=== PATIENT | male | born 1940 | race Two or more races ===

== ENCOUNTER 2017-07-31 13:39 | Emergency (ER) | payer MEDICAID, MEDICARE ==
[2017-07-31 13:51] VITALS: BP 138/73
--- NOTE | 2017-07-31 15:15 | EDM.PDOC ---
ED HPI GENERAL MEDICAL PROBLEM - General Chief Complaint: Respiratory Problem Stated Complaint: SOB Time Seen by Provider: 07/31/17 14:04 Source of Information: Reports: Patient History Limitations: Reports: No Limitations - History of Present Illness INITIAL COMMENTS - FREE TEXT/NARRATIVE: 77-year-old male presents with his family for evaluation and treatment of cough and shortness of breath. Patient primarily speaks French. His daughter is here translating. Reports that symptoms started on Thursday. Currently is complaining of productive cough, fullness to the ears, chills and shortness of breath. He also reports some chest discomfort associated with coughing. Denies any current chest discomfort. Denies any fevers, nausea, vomiting, diarrhea or abdominal pain. Patient traveled to [place] from [place] recently. He is scheduled to go home on Thursday. Patient did have an influenza vaccine this season. Duration: Day(s): (3) Chest Pain Score (Numeric/FACES): 4 Throat Pain Score (Numeric/FACES): 4 - Related Data Allergies Allergy/AdvReac Type Severity Reaction Status Date / Time No Known Allergies Allergy Verified 07/31/17 13:51 Home Meds: Home Meds glipiZIDE [Glipizide Xl] 10 mg PO DAILY 07/24/15 [History] metFORMIN HCl [Metformin HCl] 1,000 mg PO BID 07/24/15 [History] Oseltamivir [Tamiflu] 75 mg PO BID #10 cap 07/31/17 [Rx] Past Medical History Respiratory History: Reports: Asthma Endocrine/Metabolic History: Reports: Diabetes, Type II - Past Surgical History GI Surgical History: Reports: Appendectomy Social & Family History - Family History Family Medical History: Noncontributory - Tobacco Use Smoking Status *Q: Never Smoker - Caffeine Use Caffeine Use: Reports: Coffee - Recreational Drug Use Recreational Drug Use: No ED ROS GENERAL - Review of Systems Review Of Systems: See Below Constitutional: Reports: Chills, Malaise. Denies: Fever HEENT: Denies: Ear Pain (reports fullness to hte ears) Respiratory: Reports: Shortness of Breath, Cough, Sputum Cardiovascular: Reports: Chest Pain (reports discomfort associated with coughing ) GI/Abdominal: Denies: Abdominal Pain, Nausea, Vomiting ED EXAM, GENERAL - Physical Exam Exam: See Below Exam Limited By: No Limitations General Appearance: Alert, WD/WN, No Apparent Distress, Thin Ears: Normal External Exam Ear Exam: Left Ear: Erythema, Bilateral Ear: Other (fluid present behindthe bilateral TMs ) Nose: Normal Inspection Throat/Mouth: Normal Inspection, Normal Lips, Normal Voice, No Airway Compromise Respiratory/Chest: No Respiratory Distress, No Accessory Muscle Use, Rhonchi ( right lung base) Cardiovascular: Normal Peripheral Pulses, Regular Rate, Rhythm, No Murmur GI/Abdominal: Soft, Non-Tender Neurological: Alert, Normal Cognition Psychiatric: Normal Affect, Normal Mood Skin Exam: Warm, Dry, Normal Color Course - Vital Signs Last Recorded V/S: Last Vital Signs Temp 37.1 C 07/31/17 13:48 Pulse 64 07/31/17 13:48 Resp 19 07/31/17 13:48 BP 138/73 07/31/17 13:48 Pulse Ox 97 07/31/17 13:48 Orthostatic Blood Pressure [] 142/64 Orthostatic Blood Pressure [] 123/80 - Orders/Labs/Meds Orders: Active Orders 24 hr Category Date Time Status Orthostatic Vital Signs [RC] ASDIRECTED Care 07/31/17 14:25 Active - Radiology Interpretation Free Text/Narrative:: Chest: Two views of the chest were obtained. Comparison: Prior chest x-ray of 07/24/15. Heart size appears at the upper limits of normal. Tortuous thoracic aorta is is seen. Lungs are clear without acute parenchymal change. Mild degenerative change is noted within the spine. Impression: 1. Incidental findings. Nothing acute is seen. - Re-Assessments/Exams Free Text/Narrative Re-Assessment/Exam: 07/31/17 15:25 Influenza returned positive for type a. I reviewed the chest x-ray and labs with patient and his family. We will start him on Tamiflu. Offered prophylactic Tamiflu to the family but they decided against. they have an [id number] at home. I encouraged them to have her checked either here or the clinic as they report she has been experiencing cough and runny nose. Discharge instructions as documented. Departure - Departure Time of Disposition: 15:25 Disposition: Home, Self-Care 01 Condition: Fair Clinical Impression: Influenza A - Discharge Information Prescriptions: Oseltamivir [Tamiflu] 75 mg PO BID #10 cap Instructions: Influenza, Adult, [id number] Referrals: PCP,Not In Area [Primary Care Provider] - Forms: ED Department Discharge Additional Instructions: Take the Tamiflu bid x 5 days. This medication can cause upset stomach, nausea and diarrhea. Follow-up with your primary care provider in 7-10 days for recheck of your symptoms. [id number] medications such as Tylenol or Motrin as needed for headaches and body aches. Rest. make sure you are drinking plenty of fluids. Please return to the ER if your symptoms change or worsen. You are contagious 1 day before her symptoms started in a two-week afterwards. Recommend washing your hands and covering your mouth when you cough or sneeze. - My Orders Last 24 Hours: My Active Orders 07/31/17 14:25 Orthostatic Vital Signs [RC] ASDIRECTED - Assessment/Plan Last 24 Hours: My Active Orders 07/31/17 14:25 Orthostatic Vital Signs [RC] ASDIRECTED
--- NOTE | 2017-07-31 15:24 | CR ---
Chest: Two views of the chest were obtained. Comparison: Prior chest x-ray of 07/24/15. Heart size appears at the upper limits of normal. Tortuous thoracic aorta is is seen. Lungs are clear without acute parenchymal change. Mild degenerative change is noted within the spine. Impression: 1. Incidental findings. Nothing acute is seen. Diagnostic code #2
== END 2017-07-31 15:47 | disposition home or self-care (01) ==
LOC: JD.ED 13:39
DX: J10.1 Influenza due to other identified influenza virus with other respiratory manifestations (principal); E11.9 Type 2 diabetes mellitus without complications; J45.909 Unspecified asthma, uncomplicated; Z79.84 Long term (current) use of oral hypoglycemic drugs
CPT/HCPCS: 71046; 71046-26; 87804; 99283; 99285